=== PATIENT | male | born 2000 | race Caucasian/White ===

== ENCOUNTER 2022-05-23 13:46 | Outpatient (CLI) | payer OTHER | END 2022-05-23 13:47 | disposition home or self-care (01) | LOC: TBSIIMAG 13:46 | PROVIDERS: ATTEND Family Medicine | DX: M54.16 Radiculopathy, lumbar region (principal); M51.27 Other intervertebral disc displacement, lumbosacral region | CPT/HCPCS: 72148 ==

== ENCOUNTER 2022-05-29 09:34 | Outpatient (CLI) | payer BC ==
[2022-05-29 11:01] LABS: Hemoglobin 14.8 g/dL (13.5-17.5); Mean Corpuscular HGB CONC 32.2 g/dL (32.0-36.0); Mean Corpuscular Hemoglobin 27.2 pg (27.0-33.0); Mean Corpuscular Volume 84.2 fl (81.2-95.1); Mean Platelet Volume 10.4 fl (7.4-10.4); Platelet Count 235 10x3/uL (150-450); RBC Distribution Width 13.1 % (11.5-14.5); Red Blood Cell (RBC) Count 5.45 10x6/uL (4.32-5.72); White Blood Cell (WBC) Count 10.5 10x3/uL (3.5-10.5)
[2022-05-29 11:09] LABS: INR-International Normal Ratio 0.9; PTT 26.3 sec (22.0-33.0); Prothrombin Time 10.3 sec (9.5-12.1)
[2022-05-29 11:13] LABS: Anion Gap 14 mmol/L (10-20); BUN (Urea Nitrogen) 17 mg/dL (8.4-21.0); Calc. Creatinine Clearance 0 mL/min (70-130); Calcium 10.1 mg/dL (7.8-10.44); Carbon Dioxide 28 mmol/L (22-29); Chloride 100 mmol/L (98-107); Estimated GFR 109; Glucose 95 mg/dL (70-105); Potassium 4.2 mmol/L (3.5-5.1); Sodium 138 mmol/L (136-145)
== END 2022-05-29 09:35 | disposition home or self-care (01) ==
LOC: LABBT 09:34
PROVIDERS: ATTEND Surgery
DX: Z01.818 Encounter for other preprocedural examination (principal); M51.16 Intervertebral disc disorders with radiculopathy, lumbar region
CPT/HCPCS: 80048; 85027; 85610; 85730; 93005; 93010

== ENCOUNTER 2022-06-03 05:54 | Observation (INO) | payer BC ==
[2022-05-28 15:22] VITALS: BMI 24.3
[2022-06-03] MEDS ORDERED: Thrombin 5000 UNITS/5 ML VIAL ONE (06:34)
[2022-06-03] MEDS ORDERED: Vancomycin 1 GM VIAL ONE (06:34)
[2022-06-03] MEDS ORDERED: Midazolam HCl 2 mg/2 ml Vial ONE (07:03)
[2022-06-03] MEDS ORDERED: Fentanyl 250 MCG/5 ML VIAL ONE (07:13)
[2022-06-03] MEDS ORDERED: CEFAZOLIN 2 GM VIAL ONE ×2 (07:14→15:30)
[2022-06-03] MEDS ORDERED: Sodium Chloride 0.9% 100 ML ONE ×2 (07:14→15:30)
[2022-06-03] MEDS ORDERED: Ondansetron PF 4 MG/2 ML Vial ONE (07:39)
[2022-06-03] MEDS ORDERED: Rocuronium Bromide 10 MG/ML (10ML VIAL) ONE (07:39)
[2022-06-03] MEDS ORDERED: Ketorolac Tromethamine 30 MG/ML VIAL ONE (07:39)
[2022-06-03] MEDS ORDERED: ePHEDrine Sulfate 50 MG/10 ML VIAL ONE (07:39)
[2022-06-03] MEDS ORDERED: PROPOFOL 200 MG/20 ML VIAL ONE (07:39)
[2022-06-03] MEDS ORDERED: Dexamethasone 20 MG/5 ML VIAL ONE (07:39)
[2022-06-03] MEDS ORDERED: Lidocaine 1% PF 5 ML VIAL ONE (07:39)
[2022-06-03] MEDS ORDERED: SUGAMMADEX SODIUM 200 MG/2 ML VIAL ONE (09:16)
[2022-06-03] MEDS ORDERED: Ondansetron PF 4 MG/2 ML Vial IVP PRN (09:46)
[2022-06-03] MEDS ORDERED: Acetaminophen 325 MG TAB PO PRN (09:46)
[2022-06-03] MEDS ORDERED: diphenhydrAMINE 25 MG CAP PO PRN (09:46)
[2022-06-03] MEDS ORDERED: Acetaminophen/Codeine 30-300mg Tablet PO PRN (09:46)
[2022-06-03] MEDS ORDERED: Morphine 2 MG/ML VIAL SLOW IVP PRN (09:46)
[2022-06-03] MEDS ORDERED: traMADol HCl 50 MG TAB PO PRN (09:46)
[2022-06-03] MEDS ORDERED: Promethazine HCl 25 MG/ML VIAL IM PRN (09:53)
[2022-06-03] MEDS ORDERED: Ondansetron HCl/PF 4 MG/2 ML Vial IVP PRN (09:53)
[2022-06-03] MEDS ORDERED: PACU-Morphine 4MG/ML VIAL SLOW IVP PRN (09:53)
[2022-06-03] MEDS ORDERED: Morphine Sulfate 2 MG/ML SYRINGE SLOW IVP PRN (09:53)
[2022-06-03] MEDS ORDERED: HYDROmorphone 2 MG/ML VIAL SLOW IVP PRN (09:53)
[2022-06-03] MEDS ORDERED: fentaNYL 50 mcg/mL 1 mL Vial ONE (11:08)
[2022-06-03] MEDS: Sodium Chloride 0.9% 1,000 ML IV SCH ×2 (15:38→23:36)
[2022-06-03] MEDS: CEFAZOLIN 2 GM in Sodium Chloride 0.9% 100 ML IVPB SCH ×2 (15:41→23:32)
[2022-06-03] MEDS: tiZANidine HCl 4 MG TAB PO PRN (19:47)
[2022-06-03] MEDS: HYDROcodone/Acetaminophen 7.5/325 mg Tablet PO PRN (23:44)
[2022-06-04 08:24] VITALS: BP 112/66; TEMP 97.5
[2022-06-04] MEDS: tiZANidine HCl 4 MG TAB PO PRN (09:57)
[2022-06-04] MEDS: HYDROcodone/Acetaminophen 7.5/325 mg Tablet PO PRN (09:57)
== END 2022-06-04 10:24 | disposition home or self-care (01) ==
LOC: SDC 05:54 → T4-B 19:23
PROVIDERS: ADMIT Surgery; ATTEND Surgery
PROC: 01NR0ZZ Release Sacral Nerve, Open Approach (ICD-10-PCS; principal; 2022-06-03)
DX: M51.17 Intervertebral disc disorders with radiculopathy, lumbosacral region (principal)
CPT/HCPCS: C1713; J1100; J1885; J2250; J2405; J2704; J3010; J3370; J3490